=== PATIENT | male | born 1940 | race African-American/Black ===

== ENCOUNTER 2018-12-28 20:23 | Emergency (ER) | payer OTHER ==
[~2018-12-28] VITALS: Ht 177.8 cm; Wt 80.0 kg
[~2018-12-28 20:23] MED LIST: ALPRAZOLAM PO; AMLO5TAB88 PO; BACL-141 PO; OMEP40CA34 PO
[2018-12-28 20:40] VITALS: BP 189/100
[2018-12-28] MEDS ORDERED: CHLORPROMAZINE HCL 25MG/1ML AMP IM NR (21:15)
== END 2018-12-28 23:01 | disposition home or self-care (01) ==
LOC: ER 20:23
DX: R06.6 Hiccough (principal); I10 Essential (primary) hypertension; Z98.890 Other specified postprocedural states; Z79.899 Other long term (current) drug therapy
CPT/HCPCS: 96372; 99283; J3230

== ENCOUNTER 2019-01-08 18:36 | Inpatient (IN) | payer OTHER ==
[~2019-01-08] VITALS: Ht 177.8 cm; Wt 76.2 kg
[2019-01-08] MEDS ORDERED: METOCLOPRAMIDE HCL 10MG/2ML VIAL IV ONE (22:00)
[2019-01-08] MEDS ORDERED: HYDRALAZINE 20MG/ML VIAL IV ONE ×2 (22:00→23:45)
[2019-01-08] MEDS ORDERED: AMLODIPINE 10MG TABLET PO ONE (22:00)
[2019-01-08 22:12] LABS: CHLORIDE 106 mEq/L (98-107)
[2019-01-08 22:13] LABS: BASOPHILS % 0.6 % (0.0-2.0); EOSINOPHILS % 2.6 % (0.0-5.0); HEMATOCRIT. 39.9 % (42.0-52.0); HEMOGLOBIN. 13.3 g/dL (14.0-18.0); LYMPHOCYTES % 32.6 % (20.0-50.0); MEAN CORPUSCULAR VOLUME 87.1 fL (80.0-94.0); MEAN PLATELET VOLUME 7.7 fl (7.4-10.4); MONOCYTES % 10.6 % (2.0-8.0); NEUTROPHILS % 53.6 % (40.0-76.0); PLATELET 198 x1000/uL (130-400); RED BLOOD CELL COUNT 4.57 mill/uL (4.7-6.1); RED CELL DISTRIBUTION WIDTH 13.6 % (11.6-14.6)
[2019-01-09] VITALS (9 sets, daily range): BP systolic 130–169; BP diastolic 84–110
[2019-01-09] MEDS ORDERED: CHLORPROMAZINE HCL 25 MG TABLET PO ONE (00:30)
[2019-01-09] MEDS ORDERED: MORPHINE SULFATE 4 MG/ML CPJ (NOT FOR IM USE) IV ONE (00:30)
[2019-01-09] MEDS ORDERED: CLONIDINE 0.2MG TABLET PO ONE (00:30)
[2019-01-09] MEDS ORDERED: SODIUM CHLORIDE 0.9% 1,000 ML IV NR (01:00)
[2019-01-09] MEDS ORDERED: IOHEXOL-350 100 ML BOTTLE ONE (02:37)
[2019-01-09] MEDS ORDERED: ONDANSETRON HCL 4MG/2ML INJ IV PRN (04:30)
[2019-01-09] MEDS ORDERED: DOCUSATE SODIUM 100MG CAPSULE PO PRN (04:30)
[2019-01-09] MEDS ORDERED: MAGNESIUM/ALUMINUM HYDROXIDE/SIMETHICONE 30ML UDC PO PRN (04:30)
[2019-01-09] MEDS ORDERED: HYDROMORPHONE HCL/PF 2MG/ML CPJ IV PRN (04:30)
[2019-01-09] MEDS ORDERED: GUAIFENESIN 200MG/10ML SUGAR FREE UDC PO PRN (04:30)
[2019-01-09] MEDS ORDERED: ACETAMINOPHEN 325MG TABLET PO PRN (04:30)
[2019-01-09] MEDS ORDERED: DIPHENHYDRAMINE 50MG/ML VIAL IV PRN (04:30)
[2019-01-09] MEDS ORDERED: HYDROCODONE/ACETAMINOPHEN 5/325MG TABLET PO PRN (04:30)
[2019-01-09] MEDS ORDERED: NA PHOS,M-B/NA PHOS,DI-BA ENEMA 118ML PR PRN (04:30)
[2019-01-09] MEDS ORDERED: LORAZEPAM 2MG/ML CPJ IV PRN (04:30)
[2019-01-09] MEDS ORDERED: IPRATROPIUM/ALBUTEROL 0.5-3(2.5)MG/3ML NEB INH PRN (04:30)
[2019-01-09 05:23] LABS: CHLORIDE 107 mEq/L (98-107)
[2019-01-09] MEDS ORDERED: INFLUENZA VIRUS VACCINE(AFLURIA) 0.5ML SYR IM ONE (11:15)
[2019-01-09] MEDS ORDERED: PNEUMOCOCCAL 23-VAL P-SAC VAC 0.5 ML IM ONE (11:15)
[2019-01-09] MEDS: ASPIRIN 81MG EC TABLET PO SCH (11:42)
[2019-01-09] MEDS: ENOXAPARIN 40MG/0.4ML SYR SUBCUT SCH (11:43)
[2019-01-09] MEDS: CLONIDINE 0.1MG TABLET PO PRN ×2 (12:17→23:24)
[2019-01-09 15:41] LABS: CREATINE KINASE 101 IU/L (39-308)
[2019-01-09 15:42] LABS: CREATINE KINASE MB FRACTION < 1.0 ng/mL (0.5-3.6)
[2019-01-09] MEDS ORDERED: HYDRALAZINE 20MG/ML VIAL IV PRN (15:45)
[2019-01-09] MEDS: LISINOPRIL 20MG TABLET PO SCH (16:40)
[2019-01-09 23:32] LABS: CREATINE KINASE 101 IU/L (39-308)
[2019-01-09 23:33] LABS: CREATINE KINASE MB FRACTION < 1.0 ng/mL (0.5-3.6)
[2019-01-10] VITALS (10 sets, daily range): BP systolic 125–157; BP diastolic 78–98
[2019-01-10 07:20] LABS: BASOPHILS % 0.5 % (0.0-2.0); EOSINOPHILS % 2.2 % (0.0-5.0); HEMATOCRIT. 38.2 % (42.0-52.0); HEMOGLOBIN. 12.5 g/dL (14.0-18.0); MEAN CORPUSCULAR HEMOGLOBIN 28.7 pg (28.0-32.0); MEAN CORPUSCULAR VOLUME 87.8 fL (80.0-94.0); MONOCYTES % 13.8 % (2.0-8.0); NEUTROPHILS % 59.5 % (40.0-76.0); PLATELET 180 x1000/uL (130-400); RED BLOOD CELL COUNT 4.36 mill/uL (4.7-6.1); RED CELL DISTRIBUTION WIDTH 13.7 % (11.6-14.6)
[2019-01-10] MEDS: CLONIDINE 0.1MG TABLET PO PRN (08:03)
[2019-01-10] MEDS: ASPIRIN 81MG EC TABLET PO SCH (08:03)
[2019-01-10] MEDS: LISINOPRIL 20MG TABLET PO SCH (08:04)
[2019-01-10 08:43] LABS: CHLORIDE 106 mEq/L (98-107)
[2019-01-10 08:55] LABS: LDL CHOLESTEROL 128 mg/dL (5-100)
[2019-01-10 08:56] LABS: CREATINE KINASE 92 IU/L (39-308); CREATINE KINASE MB FRACTION < 1.0 ng/mL (0.5-3.6); HDL CHOLESTEROL 68 mg/dL (40-59)
[2019-01-10 08:57] LABS: T4 FREE 0.96 ng/dL (0.76-1.46)
[2019-01-10] MEDS ORDERED: HYDRALAZINE HCL 50MG TABLET PO SCH (11:30)
[2019-01-10] MEDS: ENOXAPARIN 40MG/0.4ML SYR SUBCUT SCH (11:50)
== END 2019-01-10 16:00 | disposition home or self-care (01) | DRG 79 ==
LOC: ER 18:36 → EDBEDREQ 01-09 00:51 → 5EST 01-09 01:04 → EDBEDREQTM 01-09 01:06 → EDBEDREQ 01-09 01:06 → ENRESERV 01-09 08:19
PROVIDERS: ADMIT Internal Medicine; ATTEND Internal Medicine
DX: I67.4 Hypertensive encephalopathy (principal); I10 Essential (primary) hypertension; I49.3 Ventricular premature depolarization; Z95.1 Presence of aortocoronary bypass graft; Z79.899 Other long term (current) drug therapy
CPT/HCPCS: 36415; 70490; 71045; 71275; 80048; 80061; 82550; 82553; 83036; 83880; 84439; 84443; 84484; 85379; 90686; 90732; 93005; 93306; 96374; 96375; 99291; J0360; J1650; J2765; Q0161; Q9967

== ENCOUNTER 2019-09-20 13:04 | Inpatient (IN) | payer OTHER ==
[~2019-09-20] VITALS: Ht 175.3 cm; Wt 70.3 kg
[~2019-09-20 13:04] MED LIST changes: +OMEP40CA12 PO; -OMEP40CA34 PO
[2019-09-20] MEDS ORDERED: ONDANSETRON HCL 4MG/2ML INJ IV STA (13:37)
[2019-09-20] MEDS ORDERED: ASPIRIN 81MG TABLET PO ONE (13:45)
[2019-09-20] MEDS ORDERED: NITROGLYCERIN 0.4MG TABLET SL SL PRN (13:45)
[2019-09-20 14:21] LABS: HEMATOCRIT. 35.3 % (42.0-52.0); HEMOGLOBIN. 11.7 g/dL (14.0-18.0); MEAN CORPUSCULAR HEMOGLOBIN 28.9 pg (28.0-32.0); MEAN CORPUSCULAR VOLUME 87.5 fL (80.0-94.0); MEAN PLATELET VOLUME 7.8 fl (7.4-10.4); PLATELET 156 x1000/uL (130-400); RED BLOOD CELL COUNT 4.03 mill/uL (4.7-6.1); RED CELL DISTRIBUTION WIDTH 14.2 % (11.6-14.6)
[2019-09-20 14:30] LABS: CHLORIDE 103 mEq/L (98-107)
[2019-09-20 14:31] LABS: INR 1.1; PARTIAL THROMBOPLASTIN TIME 35.5 sec (23.4-31.0); PROTHROMBIN TIME 10.8 sec (9.6-11.0)
[2019-09-20 14:33] LABS: ETHANOL BLOOD < 10 mg/dL
[2019-09-20 14:44] LABS: PLATELET ESTIMATE NORMAL
[2019-09-20 23:20] VITALS: BP 125/82
[2019-09-21] MEDS ORDERED: HYDROCODONE/ACETAMINOPHEN 5/325MG TABLET PO PRN (01:15)
[2019-09-21] MEDS ORDERED: BACLOFEN 10MG TABLET PO PRN (01:15)
[2019-09-21] MEDS ORDERED: ONDANSETRON HCL 4MG/2ML INJ IV PRN (01:15)
[2019-09-21] MEDS ORDERED: ALPRAZOLAM 0.5 MG TABLET PO PRN (02:30)
[2019-09-21] MEDS: SODIUM CHLORIDE 0.9% 1,000 ML IV SCH ×2 (02:42→16:23)
[2019-09-21 04:00] VITALS: BP 154/89
[2019-09-21] MEDS: THROAT LOZENGES-BENZOCAINE/MENTH/CETYLPYRD CL LOZENGES MM PRN ×2 (06:28→21:13)
[2019-09-21 06:35] LABS: CHLORIDE 105 mEq/L (98-107)
[2019-09-21 06:49] LABS: CREATINE KINASE 93 IU/L (39-308)
[2019-09-21 06:52] LABS: CREATINE KINASE MB FRACTION 1.1 ng/mL (0.5-3.6)
[2019-09-21 07:10] LABS: BASOPHILS % 0.7 % (0.0-2.0); EOSINOPHILS % 0.8 % (0.0-5.0); HEMATOCRIT. 35.1 % (42.0-52.0); HEMOGLOBIN. 11.7 g/dL (14.0-18.0); MEAN CORPUSCULAR HEMOGLOBIN 29.1 pg (28.0-32.0); MEAN CORPUSCULAR VOLUME 87.4 fL (80.0-94.0); MEAN PLATELET VOLUME 8.6 fl (7.4-10.4); NEUTROPHILS % 79.5 % (40.0-76.0); PLATELET 166 x1000/uL (130-400); RED BLOOD CELL COUNT 4.01 mill/uL (4.7-6.1); RED CELL DISTRIBUTION WIDTH 14.3 % (11.6-14.6)
[2019-09-21 08:00] VITALS: BP 157/91
[2019-09-21] MEDS: AMLODIPINE 5MG TABLET PO SCH (09:26)
[2019-09-21] MEDS: OMEPRAZOLE 20MG CAPSULE EXTENDED RELEASE PO SCH (09:26)
[2019-09-21] MEDS: ASPIRIN 81MG TABLET PO SCH (09:26)
[2019-09-21] MEDS: ENOXAPARIN 40MG/0.4ML SYR SUBCUT SCH (09:27)
[2019-09-21 12:00] VITALS: BP 157/92
[2019-09-21 16:00] VITALS: BP 140/84
[2019-09-21 16:38] LABS: METHADONE URINE SCREEN NEGATIVE (NEGATIVE); OPIATES URINE SCREEN NEGATIVE (NEGATIVE)
[2019-09-21 16:39] LABS: *AMPHETAMINES SCREEN URINE NEGATIVE (NEGATIVE); *BARBITURATES SCREEN URINE NEGATIVE (NEGATIVE); *BENZODIAZEPINES SCREEN URINE NEGATIVE (NEGATIVE); *COCAINE SCREEN URINE NEGATIVE (NEGATIVE); CANNABINOID URINE SCREEN NEGATIVE (NEGATIVE); PHENCYCLIDINE URINE SCREEN NEGATIVE (NEGATIVE)
[2019-09-21 17:13] LABS: CREATINE KINASE 78 IU/L (39-308)
[2019-09-21 17:14] LABS: CREATINE KINASE MB FRACTION < 1.0 ng/mL (0.5-3.6)
[2019-09-21 20:00] VITALS: BP 157/82
[2019-09-22] VITALS (7 sets, daily range): BP systolic 129–161; BP diastolic 77–96
[2019-09-22 00:48] LABS: CREATINE KINASE 78 IU/L (39-308)
[2019-09-22 00:51] LABS: CREATINE KINASE MB FRACTION 1.3 ng/mL (0.5-3.6)
[2019-09-22] MEDS: THROAT LOZENGES-BENZOCAINE/MENTH/CETYLPYRD CL LOZENGES MM PRN (01:34)
[2019-09-22] MEDS: SODIUM CHLORIDE 0.9% 1,000 ML IV SCH ×2 (05:40→18:22)
[2019-09-22] MEDS: OMEPRAZOLE 20MG CAPSULE EXTENDED RELEASE PO SCH (06:48)
[2019-09-22 08:09] LABS: BASOPHILS % 0.4 % (0.0-2.0); HEMATOCRIT. 38.1 % (42.0-52.0); HEMOGLOBIN. 12.7 g/dL (14.0-18.0); LYMPHOCYTES % 15.6 % (20.0-50.0); MEAN CORPUSCULAR HEMOGLOBIN 28.9 pg (28.0-32.0); MEAN CORPUSCULAR VOLUME 86.9 fL (80.0-94.0); MEAN PLATELET VOLUME 8.3 fl (7.4-10.4); MONOCYTES % 11.2 % (2.0-8.0); NEUTROPHILS % 71.8 % (40.0-76.0); PLATELET 238 x1000/uL (130-400); RED BLOOD CELL COUNT 4.39 mill/uL (4.7-6.1); RED CELL DISTRIBUTION WIDTH 14.2 % (11.6-14.6)
[2019-09-22 09:09] LABS: CHLORIDE 104 mEq/L (98-107)
[2019-09-22] MEDS: AMLODIPINE 5MG TABLET PO SCH ×2 (09:22→21:12)
[2019-09-22] MEDS: ASPIRIN 81MG TABLET PO SCH (09:22)
[2019-09-22] MEDS: ENOXAPARIN 40MG/0.4ML SYR SUBCUT SCH (09:22)
[2019-09-22 09:33] LABS: LDL CHOLESTEROL 106 mg/dL (5-100)
[2019-09-22 09:34] LABS: CREATINE KINASE 83 IU/L (39-308); HDL CHOLESTEROL 74 mg/dL (40-59)
[2019-09-22] MEDS ORDERED: REGADENOSON 0.4 MG/5 ML IV ONE (14:30)
[2019-09-22] MEDS ORDERED: ATORVASTATIN CALCIUM 20MG TABLET PO SCH (21:00)
[2019-09-23] VITALS: BP 126/75
[2019-09-23 04:00] VITALS: BP_SYST 89
[2019-09-23] MEDS: OMEPRAZOLE 20MG CAPSULE EXTENDED RELEASE PO SCH (07:40)
[2019-09-23 08:00] VITALS: BP 158/94
[2019-09-23] MEDS: ASPIRIN 81MG TABLET PO SCH (09:00)
[2019-09-23] MEDS: AMLODIPINE 5MG TABLET PO SCH (09:00)
[2019-09-23] MEDS: ENOXAPARIN 40MG/0.4ML SYR SUBCUT SCH (09:00)
[2019-09-23] MEDS ORDERED: REGADENOSON 0.4 MG/5 ML IV ONE (11:48)
[2019-09-23 15:13] LABS: CHLORIDE 107 mEq/L (98-107)
[2019-09-23 16:00] VITALS: BP 134/93
[2019-09-23 16:04] VITALS: BP 134/93
[2019-09-24] MEDS ORDERED: FAMOTIDINE 40MG TABLET PO SCH (07:40)
== END 2019-09-23 16:53 | disposition home or self-care (01) | DRG 552 ==
LOC: ER 13:04 → 7WST 15:33 → ENRESERV 21:16
PROVIDERS: ADMIT Internal Medicine; ATTEND Internal Medicine
DX: M48.02 Spinal stenosis, cervical region (principal); R65.10 Systemic inflammatory response syndrome (SIRS) of non-infectious origin without acute organ dysfunction; E44.1 Mild protein-calorie malnutrition; M94.0 Chondrocostal junction syndrome [Tietze]; E78.5 Hyperlipidemia, unspecified; F32.9 Major depressive disorder, single episode, unspecified; F41.9 Anxiety disorder, unspecified; I10 Essential (primary) hypertension; I25.10 Atherosclerotic heart disease of native coronary artery without angina pectoris; N40.0 Benign prostatic hyperplasia without lower urinary tract symptoms; K21.9 Gastro-esophageal reflux disease without esophagitis; N28.1 Cyst of kidney, acquired; M47.9 Spondylosis, unspecified; R07.89 Other chest pain; I49.3 Ventricular premature depolarization; Z87.891 Personal history of nicotine dependence; Z95.1 Presence of aortocoronary bypass graft; Z79.899 Other long term (current) drug therapy
CPT/HCPCS: 36415; 70551; 71045; 72141; 74176; 76705; 76770; 78452; 80048; 80053; 80061; 80305; 80320; 82550; 82553; 82962; 83735; 83880; 84443; 84484; 85025; 85379; 93005; 93017; 93306; 96372; 96374; 97161; 97165; 99285; A9500; J1650; J2405; J2785; J7030; G0480